=== PATIENT | female | born 1995 | race African-American/Black ===

== ENCOUNTER 2019-11-16 06:34 | Day surgery (SDC) | payer OTHER, MEDICAID ==
[~2019-11-16] VITALS: Ht 162.6 cm; Wt 70.6 kg
[2019-11-16] MEDS ORDERED: LACTATED RINGERS 1,000 ML IV SCH (07:09)
[2019-11-16 07:10] VITALS: BP 114/73
[2019-11-16] MEDS ORDERED: NONE PER PT (07:13)
[2019-11-16] MEDS ORDERED: CHLORHEXIDINE 15 ML UDC MM ONE (07:30)
[2019-11-16] MEDS ORDERED: PROMETHAZINE 12.5 MG SUPP PR PRN (07:30)
[2019-11-16] MEDS ORDERED: OXYcodone 5 MG/5 ML ORAL.SOL UDC PO PRN (07:30)
[2019-11-16] MEDS ORDERED: KETOROLAC 30 MG/1 ML IVPush PRN (07:30)
[2019-11-16] MEDS ORDERED: ACETAMINOPHEN 325 MG TABLET PO PRN (07:30)
[2019-11-16] MEDS ORDERED: METHOCARBAMOL 1,000 MG in DEXTROSE 5% 100 ML IV PRN (07:30)
[2019-11-16] MEDS ORDERED: LIDOCAINE-MPF 1%, 2ML INFIL ONE (07:30)
[2019-11-16] MEDS ORDERED: EPHEDRINE 50 MG/ML, 1ML IVPush PRN (07:30)
[2019-11-16] MEDS ORDERED: MEPERIDINE/PF 25MG/0.5ML IVPush PRN (07:30)
[2019-11-16] MEDS ORDERED: HYDROmorphone 1 MG/ML, 1ML INJ IVPush PRN (07:30)
[2019-11-16] MEDS ORDERED: hydrALAzine 20 MG/ML, 1ML IV PRN (07:30)
[2019-11-16] MEDS ORDERED: LABETALOL 5MG/ML, 20ML IV PRN (07:30)
[2019-11-16 07:59] LABS: BASOPHILS % (AUTO) 1 % (0-1); EOSINOPHILS % (AUTO) 2 % (1-7); LYMPHOCYTES % (AUTO) 58 % (22-44); MEAN CORPUSCULAR HEMOGLOBIN 28.5 pg (27.0-34.8); MEAN CORPUSCULAR HGB CONC 33.3 g/dL (32.4-35.8); MEAN PLATELET VOLUME 8.4 fL (7.4-10.4); MONOCYTES % (AUTO) 6 % (2-9); NEUTROPHILS % (AUTO) 34 % (42-75); PLATELET COUNT 259 x10^3/uL (130-400); RED BLOOD COUNT 4.93 x10^6/uL (3.82-5.3); RED CELL DISTRIBUTION WIDTH 13.4 % (9.6-15.2)
[2019-11-16 08:24] LABS: MD SCAN
[2019-11-16] MEDS ORDERED: MIDAZOLAM 1 MG/ML, 2ML ONE (08:27)
[2019-11-16] MEDS ORDERED: PROPOFOL 50 ML ONE (08:27)
[2019-11-16] MEDS ORDERED: FENTANYL PF 250 MCG/5ML ONE (08:27)
[2019-11-16] MEDS ORDERED: PROPOFOL 10 MG/ML, 20ML ONE (09:20)
[2019-11-16] MEDS ORDERED: ONDANSETRON 2MG/ML, 2ML ONE (09:20)
[2019-11-16] MEDS ORDERED: SUCCINYLCHOLINE 20 MG/ML, 10ML ONE (09:20)
[2019-11-16] MEDS ORDERED: CEFAZOLIN 1,000 MG ONE (09:20)
[2019-11-16] MEDS ORDERED: DEXAMETHASONE 4 MG/ML, 1ML ONE (09:20)
[2019-11-16] MEDS ORDERED: ACETAMINOPHEN 650 MG/20.3 ML UDC ONE (09:23)
[2019-11-16] MEDS ORDERED: OXYcodone 5 MG/5 ML ORAL.SOL UDC ONE (09:24)
[2019-11-16] MEDS ORDERED: FENTANYL PF 100 MCG/2ML ONE (09:24)
[2019-11-16] MEDS: FENTANYL PF 100 MCG/2ML IV PRN ×2 (09:32→09:48)
== END 2019-11-16 11:30 | disposition home or self-care (01) ==
LOC: OUT 06:34
PROVIDERS: ATTEND Otolaryngology
DX: J35.01 Chronic tonsillitis (principal); H69.80 Other specified disorders of Eustachian tube, unspecified ear; H65.195 Other acute nonsuppurative otitis media, recurrent, left ear; Z79.899 Other long term (current) drug therapy; Z88.8 Allergy status to other drugs, medicaments and biological substances; Z88.1 Allergy status to other antibiotic agents; Z20.828 Contact with and (suspected) exposure to other viral communicable diseases
CPT/HCPCS: 36415; 42821; 81025; 85025; 87635; 88304; J0330; J0690; J1100; J2250; J2405; J2704; J3010; J7120